=== PATIENT | female | born 2000 | race Caucasian/White ===

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

== ENCOUNTER 2021-02-26 20:08 | Emergency (ER) | payer OTHER ==
[~2021-02-26] VITALS: Ht 167.6 cm; Wt 109.8 kg
[~2021-02-26 20:08] MED LIST changes: +DICYCLOMINE HCL20 MG PO
== END 2021-02-27 01:24 | disposition home or self-care (01) ==
LOC: ED 20:08
DX: M79.10 Myalgia, unspecified site (principal); M25.562 Pain in left knee; M25.561 Pain in right knee; M25.542 Pain in joints of left hand; M25.541 Pain in joints of right hand; M54.9 Dorsalgia, unspecified; Z90.89 Acquired absence of other organs; Z90.49 Acquired absence of other specified parts of digestive tract; Z91.018 Allergy to other foods; Z20.822 Contact with and (suspected) exposure to COVID-19
CPT/HCPCS: 80053; 81001; 84703; 85025; 99283; C9803; U0003

== ENCOUNTER 2021-03-11 08:16 | Emergency (ER) | payer OTHER ==
[~2021-03-11] VITALS: Ht 167.6 cm; Wt 109.7 kg
--- OUTSIDE RECORDS SUMMARY | 2021-03-11 08:24 | XMS ---
PreManage Notification: TERESA CABRERA Security Credit Reporting Clerk Events No recent Security Events currently on file CRITERIA MET - [facility] - 2 Visits in 30 Days CARE PROVIDERS JAMA HARDY Physician Home Demonstration Agent 07/05/2020-Current PHONE: [phone] ALAN COLLINS Physician Home Demonstration Agent Current PHONE: [phone] IMTIAZ HALL Pediatrics 04/30/2018-[facility] PATY PHONE: [phone] Ivet has no Care Guidelines for this patient. E.D. VISIT COUNT (12 MO.) 6 [facility] TOTAL 6 NOTE: Visits indicate total known visits. ED/UCC VISIT TRACKING (12 MO.) 03/11/2021 08:17 [facility] [place] TYPE: Emergency COMPLAINT: - SORE THROAT 03/09/2021 20:28 [facility] [place] TYPE: Emergency COMPLAINT: - SORE THROAT 02/26/2021 20:09 [facility] [place] TYPE: Emergency COMPLAINT: - BACK PAIN, LOWER ABD PAIN DIAGNOSES: - Acquired absence of other specified parts of digestive tract - Dorsalgia, unspecified - Pain in joints of right hand - Pain in joints of left hand - Acquired absence of other organs - Myalgia, unspecified site - Pain in right knee - Pain in left knee - Allergy to other foods 07/03/2020 22:11 [facility] [place] TYPE: Emergency COMPLAINT: - STOMACH PAIN DIAGNOSES: - Left lower quadrant pain - Allergy to other foods 06/23/2020 20:14 [facility] [place] TYPE: Emergency COMPLAINT: - RLQ PAIN DIAGNOSES: - Allergy status to other drugs, medicaments and biological substances - Right lower quadrant pain - Nicotine dependence, unspecified, uncomplicated 05/21/2020 13:[address] 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
[2021-03-11] MEDS ORDERED: AUGMENTIN 875-1 EACH PO (08:53)
== END 2021-03-11 09:43 | disposition home or self-care (01) ==
LOC: ED 08:16
DX: I88.9 Nonspecific lymphadenitis, unspecified (principal); Z88.8 Allergy status to other drugs, medicaments and biological substances
CPT/HCPCS: 87081; 99283

== ENCOUNTER 2021-07-06 03:42 | Emergency (ER) | payer OTHER ==
[~2021-07-06] VITALS: Ht 167.6 cm; Wt 109.3 kg
[2021-07-06] MEDS ORDERED: OMEPRAZOLE20 MG PO (04:29)
[2021-07-06] MEDS ORDERED: MAPAP500 MG PO (05:17)
[2021-07-06] MEDS ORDERED: IBU600 MG PO (05:17)
[2021-07-06] MEDS ORDERED: ACID-PEP20 MG PO (05:17)
[2021-07-06] MEDS ORDERED: ONDANSETRON ODT4 MG PO (05:17)
--- NOTE | 2021-07-06 17:18 | EKG ---
[facility] [address] [facility] [place], [place] [address] Signed Sinus bradycardia Otherwise normal ECG No previous ECGs available Confirmed by SAMINA GONZALEZ MD ([id number]) on 07/06/2021 5:18:34 PM Electronically Signed By: SAMINA GONZALEZ MD 07/06/21 1718 PATIENT NAME: DEBORAHTERESA BECKA Electrocardiogram DATE OF : [birth year] PHYSICIAN: SAMINA GONZALEZ MD REPORT #: [id number] REPORT IS CONFIDENTIAL AND NOT TO BE RELEASED WITHOUT AUTHORIZATION
== END 2021-07-06 06:14 | disposition home or self-care (01) ==
LOC: ED 03:42
DX: R11.2 Nausea with vomiting, unspecified (principal); R42 Dizziness and giddiness; R55 Syncope and collapse; R10.10 Upper abdominal pain, unspecified; Z91.018 Allergy to other foods; Z79.899 Other long term (current) drug therapy
CPT/HCPCS: 36415; 80053; 81001; 83690; 84703; 85025; 93005; 93010; 96374; 96375; 99284-25; A9270; J1885; J2405; J7121

== ENCOUNTER 2021-09-29 20:14 | Emergency (ER) | payer OTHER ==
[~2021-09-29] VITALS: Ht 167.6 cm; Wt 108.0 kg
[~2021-09-29 20:14] MED LIST changes: +ACID-PEP20 MG PO; +IBU600 MG PO; +MAPAP500 MG PO; +ONDANSETRON ODT4 MG PO
[2021-09-30] MEDS ORDERED: HYDROCODON-ACE1 EA10 PO (00:09)
== END 2021-09-30 00:27 | disposition home or self-care (01) ==
LOC: ED 20:14
DX: R10.31 Right lower quadrant pain (principal); R10.32 Left lower quadrant pain; Z88.8 Allergy status to other drugs, medicaments and biological substances; Z79.899 Other long term (current) drug therapy
CPT/HCPCS: 36415; 51701; 76830; 76856; 80053; 81001; 83690; 84703; 85025; 99284-25; A9270

== ENCOUNTER 2021-11-19 14:26 | Emergency (ER) | payer OTHER ==
[~2021-11-19] VITALS: Ht 167.6 cm; Wt 105.1 kg
[2021-11-19] MEDS ORDERED: ONDANSETRON ODT8 MG PO (18:35)
== END 2021-11-19 18:53 | disposition home or self-care (01) ==
LOC: ED 14:26
DX: B34.9 Viral infection, unspecified (principal); Z91.018 Allergy to other foods
CPT/HCPCS: 71045; 99284-25

== ENCOUNTER 2022-04-09 17:54 | Emergency (ER) | payer OTHER ==
[~2022-04-09] VITALS: Ht 167.6 cm; Wt 102.1 kg
[~2022-04-09 17:54] MED LIST changes: +ONDANSETRON ODT8 MG PO
== END 2022-04-09 18:40 | disposition home or self-care (01) ==
LOC: ED 17:54
DX: S63.501A Unspecified sprain of right wrist, initial encounter (principal); S60.221A Contusion of right hand, initial encounter; W22.8XXA Striking against or struck by other objects, initial encounter
CPT/HCPCS: 73110; 99283-25

== ENCOUNTER 2022-04-16 20:51 | Emergency (ER) | payer OTHER ==
[~2022-04-16] VITALS: Ht 167.6 cm; Wt 101.6 kg
--- OUTSIDE RECORDS SUMMARY | 2022-04-16 20:54 | XMS ---
PreManage Notification: TERESA CABRERA Security Diabetes Nurse Events 1 event(s) in the past 18 months Most recent security events: Elopement at [facility] 03/09/2021 20:28 - Other Details: PATIENT LWBS CRITERIA MET - [facility] - 2 Visits in 30 Days CARE PROVIDERS JAMA HARDY Physician Musical Performer 07/05/2020-Current PHONE: [phone] ALAN COLLINS Physician Musical Performer Current PHONE: Unknown Almita Angela-Randy Nurse Practitioner: Family Current PHONE: [phone] IMTIAZ HALL Pediatrics 04/30/2018-Current [facility] PHONE: Unknown Ivet has no Care Guidelines for this patient. Care History Medical/Surgical 03/16/2021 [facility] CHW CALLED PATIENT NO VOICEMAIL SET UP CHW CALLED [facility] LAST APT WITH PCP WAS ABOUT A YEAR AGO 06/07/2020. PLEASE REFER PATIENT TO PRIMARY CARE PHYSICIAN NON EMERGENT [place]. ESara VISIT COUNT (12 MO.) 5 [facility]. TOTAL 5 NOTE: Visits indicate total known visits. ED/UCC VISIT TRACKING (12 MO.) 04/16/2022 20:[address] [facility] [place] [facility]: Emergency COMPLAINT: - ABD PAIN 04/09/2022 17:54 [facility] [place] [facility] [place] TYPE: Emergency COMPLAINT: - RT HAND INJURY DIAGNOSES: - Striking against or struck by other objects, initial encounter - Unspecified sprain of right wrist, initial encounter - Contusion of right hand, initial encounter - Pain in right wrist 11/19/2021 14:27 [facility] [place] [facility] [place] TYPE: Emergency COMPLAINT: - VOMITING, CHEST PAIN DIAGNOSES: - Viral infection, unspecified - Allergy to other foods - Nausea with vomiting, unspecified 09/29/2021 20:15 [facility] [place] TYPE: Emergency COMPLAINT: - VAGINAL PAIN DIAGNOSES: - Allergy status to other drugs, medicaments and biological substances - 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 [place] TYPE: Emergency COMPLAINT: - ABD PAIN, NAUSEA DIAGNOSES: - Allergy to other foods - Upper abdominal pain, unspecified - Nausea with vomiting, unspecified - Syncope and collapse - Dizziness and giddiness - Other fpc (current) drug therapy INPATIENT VISIT TRACKING (12 MO.) No inpatient visits to display in this time frame [email or web address]
[2022-04-17] MEDS ORDERED: OMEPRAZOLE20 MG PO (00:40)
--- NOTE | 2022-04-17 18:32 | EKG ---
[facility] [address] [facility] [place] [address] Signed Sinus bradycardia Otherwise normal ECG When compared with ECG of 06-JUL-2021 04:46, No significant change was found Confirmed by SAMINA GONZALEZ MD ([id number]) on 04/17/2022 6:32:06 PM Electronically Signed By: SAMINA GONZALEZ MD 04/17/221831 PATIENT NAME: TERESA CABRERA BECKA Electrocardiogram DATE OF : [birth year] PHYSICIAN: SAMINA GONZALEZ MD REPORT #: [id number] REPORT IS CONFIDENTIAL AND NOT TO BE RELEASED WITHOUT AUTHORIZATION
== END 2022-04-17 01:05 | disposition home or self-care (01) ==
LOC: ED 20:51
DX: R55 Syncope and collapse (principal); K21.9 Gastro-esophageal reflux disease without esophagitis
CPT/HCPCS: 36415; 80053; 81003; 83735; 84703; 85025; 93005; 93010; 96374; 96375; 99284-25; J2405; J7121

== ENCOUNTER 2022-07-10 08:28 | Emergency (ER) | payer OTHER ==
[~2022-07-10] VITALS: Ht 167.6 cm; Wt 101.6 kg
[2022-07-10] MEDS ORDERED: PROMETHAZINE HC25 M1 PO (10:12)
== END 2022-07-10 10:22 | disposition home or self-care (01) ==
LOC: ED 08:28
DX: Z32.01 Encounter for pregnancy test, result positive (principal)
CPT/HCPCS: 36415; 80053; 81001; 83690; 84702; 85025; 99284